=== PATIENT | female | born 1995 | race Asian ===

== ENCOUNTER 2024-05-15 13:35 | Emergency (ER) | payer OTHER ==
[~2024-05-15] VITALS: Ht 167.6 cm; Wt 54.0 kg
[2024-05-15 13:41] VITALS: O2SAT 96
[2024-05-15] MEDS: BACITRACIN ZINC OINT UDPKT TOP ONE (14:53)
[2024-05-15] MEDS: IBUPROFEN 600MG TABLET PO ONE (14:53)
[2024-05-15] MEDS: LIDOCAINE HCL/PF 1% 10 MG/ML 5ML VIAL INFIL ONE (14:54)
[2024-05-15] MEDS: TETANUS, DIPHTHERIA, PERTUSSIS VAC/PF 0.5ML (>10YR OLD) IM ONE (14:58)
[2024-05-15] MEDS ORDERED: NAPR-681 PO (15:33)
[2024-05-15 15:38] VITALS: BP 122/63; PULSE 88; RESP 20; TEMP 97.9
== END 2024-05-15 15:39 | disposition home or self-care (01) ==
LOC: ER 13:53
DX: S01.01XA Laceration without foreign body of scalp, initial encounter (principal); X58.XXXA Exposure to other specified factors, initial encounter; Y93.89 Activity, other specified; Y92.89 Other specified places as the place of occurrence of the external cause; Y99.8 Other external cause status
CPT/HCPCS: 90715; 90471; 99283; J3490; Z7610 ×4

== ENCOUNTER 2025-08-26 10:27 | Emergency (ER) | payer OTHER ==
[~2025-08-26] VITALS: Ht 157.5 cm; Wt 55.0 kg
[~2025-08-26 10:27] MED LIST: NAPR-681 PO
[2025-08-26 10:32] VITALS: O2SAT 98
[2025-08-26 10:50] VITALS: BP 143/109; PULSE 97; RESP 16; O2SAT 95
[2025-08-26] MEDS ORDERED: METH4TAB95 MT (11:48)
[2025-08-26] MEDS ORDERED: HYDR-459 MT (11:48)
== END 2025-08-26 12:30 | disposition home or self-care (01) ==
LOC: ER 10:27
DX: J33.9 Nasal polyp, unspecified (principal); J45.909 Unspecified asthma, uncomplicated; Z79.899 Other long term (current) drug therapy; Z98.890 Other specified postprocedural states
CPT/HCPCS: 99283